=== PATIENT | male | born 1990 | race American Indian/Alaskan Native ===

== ENCOUNTER 2018-06-04 03:12 | Emergency (ER) | payer SELFPAY ==
[2018-06-04 06:19] LABS: Hematocrit 27.8 % (35.5-45.6); Hemoglobin 9.5 gm/dl (11.8-15.2); Mean Corpuscular HGB Conc 34 % (32-34); Mean Corpuscular Hemoglobin 30 pg (28-32); Mean Corpuscular Volume 88 fl (84-94); Platelet Count 303 K/mm3 (140-440); Red Blood Count 3.16 M/mm3 (3.65-5.03); Red Cell Distribution Width 15.4 % (13.2-15.2)
[2018-06-04 06:30] LABS: BUN/Creatinine Ratio 16; Blood Urea Nitrogen 13 mg/dL (9-20); Calcium 8.6 mg/dL (8.4-10.2); Hemolysis Index 0
[2018-06-04] MEDS ORDERED: KEPPRA 1,000 MG/NS 0.75% 100ML 1,000 MG/100 ML BAG IV ONE (10:21)
[2018-06-04] MEDS ORDERED: TORADOL IV ONE (10:22)
--- NOTE | 2018-06-04 10:43 | Emergency Department Report ---
ED Seizure HPI - General Chief Complaint: Seizure Stated Complaint: SEIZURES Time Seen by Provider: 06/04/18 10:13 Source: patient Mode of arrival: Stretcher Limitations: No Limitations - History of Present Illness Initial Comments: 28 year old male with past medical history of seizures and HIV presents to the hospital complaining of multiple seizures prior to arrival. Friend states that patient had at least 3 seizures. Patient states he has a history of seizures with last seizure was several months ago. He is not taking any seizure medication currently. He is HIV positive with unknown CD4 count is states he is taking HIV medication denies history of full blown AIDS. He complains of global headache for the past 2 days. No fever, focal weakness or numbness reported. - Related Data Allergies Allergy/AdvReac Type Severity Reaction Status Date / Time No Known Allergies Allergy Unverified 06/04/18 05:42 ED Review of Systems ROS: Stated complaint: SEIZURES Other details as noted in HPI Comment: All other systems reviewed and negative ED Past Medical Hx - Past Medical History Previous Medical History?: Yes Hx Seizures: Yes Hx HIV: Yes - Surgical History Past Surgical History?: No - Social History Smoking Status: Current Every Day Smoker Substance Use Type: Marijuana ED Physical Exam - General Limitations: No Limitations - Other Other exam information: General: No limitations, patient is alert in no acute distress Head exam: Atraumatic, normocephalic Eyes exam: Normal appearance, pupils equal reactive to light, extraocular movements intact ENT: Moist mucous membrane, normal oropharynx, no thrush Neck exam: Normal inspection, full range of motion, no meningismus nontender Respiratory exam: Clear to auscultation bilateral, no wheezes, rales, crackles Cardiovascular: Normal rate and rhythm, normal heart sounds Abdomen: Soft, nondistended, and nontender, with normal bowel sounds, no rebound, or guarding Extremity: Full range of motion normal inspection no deformity Back: Normal Inspection, full range of motion, no tenderness Neurologic: drowsy but easily arousable to tactile stimulation, oriented x3, cranial nerves intact, no motor or sensory deficit Psychiatric: normal affect, normal mood Skin: Warm, dry, intact ED Course Vital Signs 06/04/18 06/04/18 06/04/18 05:42 06:01 07:00 Temperature 98 F Pulse Rate 87 Respiratory 17 Rate Blood Pressure 120/54 120/54 108/67 Blood Pressure 120/54 [Left] O2 Sat by Pulse 97 98 99 Oximetry 06/04/18 06/04/18 06/04/18 08:00 09:00 10:00 Temperature Pulse Rate Respiratory Rate Blood Pressure 107/57 107/58 101/58 Blood Pressure [Left] O2 Sat by Pulse 100 97 97 Oximetry - Consultations Consultation #1: 06/04/18 13:03 case d/w DR Corral neurosurgery at [place]. accepted for transfer, rec no antibiotics at this time ED Medical Decision Making - Lab Data Result diagrams: 06/04/18 05:55 06/04/18 05:55 Lab Results 06/04/18 06/04/18 06/04/18 Range/Units 05:55 05:55 10:30 WBC 5.0 (4.5-11.0) K/mm3 RBC 3.16 L (3.65-5.03) M/mm3 Hgb 9.5 L (11.8-15.2) gm/dl Hct 27.8 L (35.5-45.6) % MCV 88 (84-94) fl MCH 30 (28-32) pg MCHC 34 (32-34) % RDW 15.4 H (13.2-15.2) % Plt Count 303 (140-440) K/mm3 Sodium 137 (137-145) mmol/L Potassium 3.9 (3.6-5.0) mmol/L Chloride 99.6 (98-107) mmol/L Carbon Dioxide 27 (22-30) mmol/L Anion Gap 14 mmol/L BUN 13 (9-20) mg/dL Creatinine 0.8 (0.8-1.5) mg/dL Estimated GFR > 60 ml/min BUN/Creatinine Ratio 16 % Glucose 88 (75-100) mg/dL Calcium 8.6 (8.4-10.2) mg/dL Urine Opiates Screen Presumptive negative Urine Methadone Screen Presumptive negative Ur Barbiturates Screen Presumptive negative Ur Phencyclidine Scrn Presumptive negative Ur Amphetamines Screen Presumptive negative U Benzodiazepines Scrn Presumptive negative Urine Cocaine Screen Presumptive negative U Marijuana (THC) Screen Presumptive positive - Radiology Data Radiology results: report reviewed CT HEAD WITHOUT CONTRAST: HISTORY: Headache, seizure. TECHNIQUE: Sequential 2.5mm CT images. COMPARISON: none. FINDINGS: Cerebral Parenchyma: Near the right frontoparietal junction, there is an ill-defined mass like lesion measuring 3.6 x 3.3 cm in axial plane on image 45. Considerations include a mass , infarct or abscess. I favor an infectious etiology such as a cerebral abscess. The remainder of the brain parenchyma demonstrates normal attenuation. The rivas-white interface is well defined. Cerebellum: Within normal limits. Brainstem: Within normal limits. Ventricles: Normal. Sella: Normal. Extra-axial spaces: Normal. Basal Cisterns: Normal. Intracranial Hemorrhage: None. Midline Shift: None. Calvarium: Normal. Sinuses: Normal. Mastoid Air Cells: Normal. Visualized Orbits: Normal. IMPRESSION: 3.6 x 3.3 cm masslike lesion in the right frontoparietal region. Further evaluation with CT with contrast or MRI with contrast is recommended. Given this patient's age, I favor an infectious etiology such as cerebral abscess. Please correlate with the patient's clinical presentation. - Medical Decision Making seizure hx of same no meds received keppra in ed headache ct + for mass vs infarct vs abscess with abscess thought to be most likely blood cultures ordered abx ordered but canceled after discussion with neurosurgeon case d/w neurosurgery at [place] - Differential Diagnosis breakthrough seizure, medication noncompliance, intracranial abnormality Critical Care Time: No Critical care attestation.: If time is entered above; I have spent that time in minutes in the direct care of this critically ill patient, excluding procedure time. ED Disposition Clinical Impression: Seizure, HIV (human immunodeficiency virus infection), Headache, Brain mass Disposition: [id number] ANOTHER TYPE HLTHCARE Is pt being admited?: No Condition: Stable Time of Disposition: 13:07 (accepted for transfer to [place])
[2018-06-04 10:51] LABS: Amphetamine Screen,Urine PRESUMPTIVE NEGATIVE; Benzodiazepines Screen,Urine PRESUMPTIVE NEGATIVE; Cocaine Screen,Urine PRESUMPTIVE NEGATIVE; Methadone Screen,Urine PRESUMPTIVE NEGATIVE; Opiate Screen,Urine PRESUMPTIVE NEGATIVE
--- NOTE | 2018-06-04 11:05 | Cat Scan Report ---
CT HEAD WITHOUT CONTRAST: HISTORY: Headache, seizure. TECHNIQUE: Sequential 2.5mm CT images. COMPARISON: none. FINDINGS: Cerebral Parenchyma: Near the right frontoparietal junction, there is an ill-defined mass like lesion measuring 3.6 x 3.3 cm in axial plane on image 45. Considerations include a mass, infarct or abscess. I favor an infectious etiology such as a cerebral abscess. The remainder of the brain parenchyma demonstrates normal attenuation. The rivas-white interface is well defined. Cerebellum: Within normal limits. Brainstem: Within normal limits. Ventricles: Normal. Sella: Normal. Extra-axial spaces: Normal. Basal Cisterns: Normal. Intracranial Hemorrhage: None. Midline Shift: None. Calvarium: Normal. Sinuses: Normal. Mastoid Air Cells: Normal. Visualized Orbits: Normal. IMPRESSION: 3.6 x 3.3 cm masslike lesion in the right frontoparietal region. Further evaluation with CT with contrast or MRI with contrast is recommended. Given this patient's age, I favor an infectious etiology such as cerebral abscess. Please correlate with the patient's clinical presentation.
[2018-06-04 11:06] LABS: Cannabinoid Screen,Urine PRESUMPTIVE POSITIVE
[2018-06-04] MEDS ORDERED: FLAGYL 500 MG/100 ML 500 MG/100 ML BAG IV ONE (13:00)
[2018-06-04] MEDS ORDERED: ROCEPHIN/NS 2 GM/100 ML 2 GM/100 ML BAG IV ONE (13:00)
[2018-06-04 13:28] VITALS: BP 100/64
[2018-06-04] MEDS ORDERED: VANCOMYCIN 1,500 MG in NACL 0.9% 500 ML 500 ML IV ONE (14:00)
== END 2018-06-04 14:24 | disposition other institution (70) ==
LOC: ED 03:12
DX: R56.9 Unspecified convulsions (principal); R51 Headache; R22.0 Localized swelling, mass and lump, head; F12.10 Cannabis abuse, uncomplicated; F17.200 Nicotine dependence, unspecified, uncomplicated
CPT/HCPCS: 36415; 70450; 80048; 80307; 85027; 87040; 96365; 96375; 99285; J1885; J1953; J0696; J3370; J7040